=== PATIENT | female | born 1960 | race Two or more races ===

== ENCOUNTER 2016-11-17 21:16 | Emergency (ER) | payer SELFPAY ==
[~2016-11-17] VITALS: Ht 157.5 cm; Wt 68.0 kg
[2016-11-17] MEDS ORDERED: ONDANSETRON 4 MG TAB.RAPDIS ONE (21:41)
[2016-11-17] MEDS ORDERED: HYDROCODONE/APAP 5/325MG 1 EACH TABLET ONE (21:49)
[2016-11-17] MEDS ORDERED: HYDROCODONE/APAP 5/325MG 1 EACH TABLET PO ONE (22:00)
[2016-11-17] MEDS ORDERED: ONDANSETRON 4 MG TAB.RAPDIS SL ONE (22:00)
[2016-11-17 23:55] VITALS: BP 130/75
== END 2016-11-17 23:56 | disposition home or self-care (01) ==
LOC: ER 21:18
DX: M79.604 Pain in right leg (principal)
CPT/HCPCS: 73590; 99284; A4606; Q0162; Z7610